=== PATIENT | female | born 1965 | race Caucasian/White ===

== ENCOUNTER 2017-03-31 15:23 | Inpatient (IN) | payer MEDICAID ==
--- NOTE | 2017-03-31 16:20 | ED Physician Chart ---
ED Chief Complaint/HPI - Patient Information Date Seen:: 03/31/17 Time Seen:: 15:35 Chief Complaint:: ABD DISTENSION X 3 DAYS. DYSPNEA DUE TO ABD DIST. History of Present Illness:: THIS 51 YEAR OLD FEMALE NOTICED THAT HER AB WAS GETTING MORE SWOLLEN 3 DAYS AGO. SHE HAS PAIN IN THE LUQ THAT IS 5/10 SEVERITY. THE PAIN IW WORSE WHEN SHE LAYS ON HER LEFT SIDE AND WHEN SHE IS WALKIN. SHE DENIES ALCOHOL USE BUT SMOKES ABOUT 1/3 OF A PACK PER DA7. SHE IS ALSO HAVING INCREASED DIFFICULTY BREATHING DUE TO THE SWELLING IN HER ABD. SHE HAS HAD NAUSEA FOR 3 DAYS WITH NO VOMITING WITH NO FEVER, CHILLS OR RASH. SHE HAD 4 EPISODES OF DIARRHEA YESTERDAY. NO DYSURIA OR HEMATURIA. PT HAS NOTICED HER URINE TURNED DARKER YESTEREAY. Allergies:: Allergies Allergy/AdvReac Type Severity Reaction Status Date / Time No Known Allergies Allergy Verified 03/31/17 15:36 Vitals:: Vital Signs - 8 hr 03/31/17 15:36 Temp 97.8 F HR 86 RR 17 BP 163/99 O2 Sat % 98 Review:: Nurse's Note Reviewed (NURSES NOT ON TRIAGE SHEET. NOT IN EMR.) ED Review of Systems - Review of Systems General/Constitutional: No fever, No chills, No weakness, No diaphoresis, Edema , No loss of appetite Skin: No bruising, Other (patient has psoriatic plaques on her abdomen and is single plaque over her right elbow.) Head: Headache ( headache is a 3/10 in severity.), No light-headedness Eyes: No loss of vision, No pain, No diplopia ENT: Earache, No earache, No nasal drainage, Sore throat, No sore throat, Other Neck: No neck pain, No swelling, No thyromegaly, No stiffness, No mass noted Cardio Vascular: No chest pain, No palpitations, No orthopnea, edema Pulmonary: SOB, No cough, No sputum, Wheezing GI: Nausea, No vomiting, Diarrhea, No melena, No hematochezia, No hematemesis, Other (NO Hemoptysisand) 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 Musculoskeletal: Back pain (BACK PAIN IS CHRONIC) Endocrine: No polyuria, No polydipsia Psychiatric: No prior psych history, No depression, No suicidal ideation Hematopoietic: No bruising Allergic/Immuno: No urticaria, No angioedema Neurological: No syncope, No focal symptoms, No seizure, No confusion, No vertigo ED Past Medical History - Past Medical History Past Medical History: Other (COPD, PSORIASIS) Social History: Smoker, No Alcohol, No Drug Use, Single Family Medical History - Family Member Mother History Unknown: Yes Ethnicity: Non- Living Status: Father Ethnicity: Non- Living Status: Hx Family Cancer: No Hx Family Coronary Artery Disease: Yes ( of a heart attack) Hx Family Congestive Heart Failure: No Hx Family Hypertension: Yes Hx Family Stroke: No Hx Family Diabetes: No Hx Family Seizures: No Hx Family Dementia: No Hx Family AIDS: No Hx Family HIV: No Hx Family COPD: No Hx Family Hepatitis: No Hx Family Psychiatric Problems: No Hx Family Tuberculosis: No ED Labs/Radiology/EKG Results - Lab Results Results: Laboratory Results - last 24 hr 03/31/17 03/31/17 03/31/17 16:00 16:00 16:00 WBC RBC Hgb Hct MCV MCH MCHC Differential RDW Plt Count MPV Neutrophils % Lymphocytes % Monocytes % Eosinophils % Basophils % Sodium 134 L Potassium 4.6 Chloride 99 Carbon Dioxide 29.7 Anion Gap 9.9 BUN 7 Creatinine 0.7 Est GFR ( Amer) > 60.0 Est GFR (Non-Af Amer) > 60.0 BUN/Creatinine Ratio 10.0 Glucose 97 Calcium 9.2 Total Bilirubin 1.5 H AST 13 ALT 9 Alkaline Phosphatase 61 Troponin I 0.02 B-Natriuretic Peptide 241.0 H Total Protein 6.8 Albumin 3.3 L Globulin 3.5 Albumin/Globulin Ratio 0.9 L 03/31/17 17:20 WBC 7.2 D RBC 6.04 H Hgb 13.8 Hct 44.7 MCV 74.1 L MCH 22.9 L MCHC Differential 30.9 RDW 18.0 Plt Count 231 MPV 10.1 Neutrophils % 72.4 Lymphocytes % 19.3 L Monocytes % 6.1 Eosinophils % 2.1 Basophils % 0.1 Sodium Potassium Chloride Carbon Dioxide Anion Gap BUN Creatinine Est GFR ( Amer) Est GFR (Non-Af Amer) BUN/Creatinine Ratio Glucose Calcium Total Bilirubin AST ALT Alkaline Phosphatase Troponin I B-Natriuretic Peptide Total Protein Albumin Globulin Albumin/Globulin Ratio The CBC is unremarkable in that there is no leukocytosis, anemia or platelet disorders. Metabolic studies show mild hyponatremia, normal renal function, normal hepatic tension. The BNP is mildly elevated and consistent with mild CHF. The troponin was in the normal range, indicating no cardiac ischemia. Single view chest x-ray shows cardiomegaly, vascular congestion in the lower lobes and possible left floral effusion. These findings were discussed with the radiologist who concurs. The EKG showed normal sinus rhythm in the 70 range with occasional PACs. The MT interval, QRS duration, and QT interval were all within normal parameters. The QRS axis is normal. No Q waves were identified. Impression: no findings of acute cardiac ischemia. ED Assessment - Assessment General Assessment: CASE SUMMARY: this 51-year-old female presents with increasing abdominal distention over the past three days. This was accompanied by increased difficulty breathing. The patient denied any fever, chills, cough or chest pain. Chest x-ray was consistent with mild to moderate CHF. The patient symptoms were addressed with 40 mg of furosemide administered IV. The case was discussed with Dr. Lewis and the patient will be admitted to a telemetry bed for further evaluation of possible CHF. MDM DDX FOR DIFFICULTY BREATHING: NOT Pneumonia based on the patient's history, physical examination and chest x-ray. NOT Pneumothorax based on interpretation of the chest x-ray. NOT Severe anemia based on a normal hemoglobin concentration. NOT Metabolic acidosis based on lab studies. ED Septic Shock - . Is Septic Shock (SBP<90, OR Lactate>4 mmol\L) present?: No - <6hrs of presentation: Vital Signs: Vital Signs - 8 hr 03/31/17 15:36 Temp 97.8 F HR 86 RR 17 BP 163/99 O2 Sat % 98 ED Reassessment (Disposition) - Reassessment Reassessment Condition:: Improved - Diagnosis Diagnosis:: CONGESTIVE HEART FAILURE, morbid obesity, PSORIASIS - Patient Disposition Discharge/Transfer:: Acute Care w/in this hosp Accepting Physician:: Dr. Lewis Condition at Disposition:: Improved ED Discharge Plan - Patient Disposition Admit/Discharge/Transfer: Acute Care w/in this hosp Condition at Disposition: Guarded
[2017-03-31 17:09] LABS: % BASOPHILS 0.1 % (0.0-2.0); % EOSINOPHILS 2.1 % (0.0-5.0); % LYMPHOCYTES 19.3 % (20.0-50.0); % MONOCYTES 6.1 % (2.0-10.0); % NEUTROPHILS 72.4 % (40.0-80.0); EOSINOPHILE ABSOLUTE 0.2 Th/cmm (0.1-0.4); HEMATOCRIT 44.7 % (41.0-60); HEMOGLOBIN 13.8 gm/dL (12-16); LYMPHOCYTE ABSOLUTE 1.4 Th/cmm (1.5-3.0); MEAN CELL VOLUME 74.1 fl (81-100); MEAN CORPUSCULAR HEMOGLOBIN 22.9 pg (27.0-31.0); MEAN CORPUSCULAR HGB CONC 30.9 pg (28.0-36.0); MEAN PLATELET VOLUME 10.1 fl; MONOCYTE ABSOLUTE 0.4 Th/cmm (0.3-1.0); NEUTROPHILE ABSOLUTE 5.2 Th/cmm (1.8-8.0); PLATELET COUNT 231 Th/cmm (150-400); RED BLOOD COUNT 6.04 Mil/cmm (3.80-5.10)
[2017-03-31 17:19] LABS: ALB/GLOB RATIO 0.9 (1.0-1.8); ALBUMIN 3.3 gm/dL (3.7-5.3); ALKALINE PHOSPHATASE 61 U/L (34-104); ANION GAP 9.9 (7.0-16.0); BILIRUBIN,TOTAL 1.5 mg/dL (0.3-1.0); BUN - UREA NITROGEN 7 mg/dL (7-25); CALCIUM SERUM 9.2 mg/dL (8.6-10.3); CARBON DIOXIDE 29.7 mEq/L (21.0-31.0); CHLORIDE 99 mEq/L (98-107); CREATININE - SERUM 0.7 mg/dL (0.6-1.2); GFR AFRICAN-AMERICAN > 60.0 ml/min (>90); GFR NON AFRICAN-AMERICAN > 60.0 ml/min; GLUCOSE 97 mg/dL (70-105); POTASSIUM SERUM 4.6 mEq/L (3.5-5.1); SGOT 13 U/L (13-39); SGPT/ALT 9 U/L (7-52); SODIUM SERUM 134 mEq/L (136-145); TOTAL PROTEIN,SERUM 6.8 gm/dL (6.0-8.3)
[2017-03-31 17:24] LABS: WHITE BLOOD COUNT 7.2 Th/cmm (4.8-10.8)
[2017-03-31 22:01] VITALS: BP 155/99
[2017-03-31] MEDS: Hydrocodone/APAP 5mg/325mg Tab PO PRN (23:32)
[2017-04-01] MEDS: Albuterol/Ipratropium Neb 3 ML AERS HHN SCH ×4 (00:21→19:29)
[2017-04-01 04:21] LABS: URINE MICROSCOPIC INDICATED? YES; URINE SOURCE RANDOM
[2017-04-01 04:44] LABS: URINE BILIRUBIN SMALL (NEGATIVE); URINE BLOOD NEGATIVE (NEGATIVE); URINE GLUCOSE (UA) NEGATIVE (NEGATIVE); URINE KETONE NEGATIVE (NEGATIVE); URINE LEUKOCYTE ESTERASE NEGATIVE (NEGATIVE); URINE NITRATE NEGATIVE (NEGATIVE); URINE PROTEIN TRACE mg/dL (NEGATIVE)
[2017-04-01 04:51] LABS: URINE CLARITY HAZY (CLEAR); URINE COLOR ORANGE
[2017-04-01 04:54] LABS: URINE BACTERIA 1+ /hpf (NONE SEEN); URINE EPITHELIAL CELLS MODERATE /lpf (FEW); URINE RBC 0-2 /hpf (0-5)
[2017-04-01 04:55] LABS: URINE HYALINE CAST 0-2 /lpf (0-2)
--- NOTE | 2017-04-01 09:34 | Diagnostic Imaging Report ---
Exam: Portable chest x-ray HISTORY: Shortness of breath. Findings: Portable examination of the chest at 1805 hours reviewed and compared to prior study of 09/18/2014. The study demonstrates cardiomegaly with superimposed congestive heart failure There is evidence for left lower lobe pneumonia and effusion. Follow-up examination recommended. Bony thorax is intact. IMPRESSION: Cardiomegaly congestive heart failure Left lower lobe pneumonia and effusion follow-up summation recommended.
--- NOTE | 2017-04-01 09:37 | Diagnostic Imaging Report ---
Exam: CT examination of the abdomen pelvis. HISTORY: Pain Total DLP equals 1025 CTDI equals 19.8. Findings: Multiple contiguous thin section of the abdomen pelvis obtained from lower thorax to pubic symphysis without the administration intravenous or oral contrast material. No prior studies available for comparison. The study demonstrates normal aeration of lung parenchyma the bases. There is evidence for a small 2 cm pleural density in the left mid the chest body the pleural surface. Clinical correlation recommended. The liver parenchyma spleen are normal. The gallbladder distended and free of stones. The pancreas is normal. The regional glands intact. The kidneys demonstrate no evidence of obstructive uropathy or nephrolithiasis. The abdominal aorta is calcified. The bowel gas to be nonspecific. There is evidence for anasarca. There is no evidence of diverticular disease of diverticulitis. The uterus is prominent. The urinary bladder is intact. Bony structures demonstrate no evidence for lytic or blastic changes. IMPRESSION: Ill-defined nodularity abutting the mid left chest pleural surface measuring 2 cm diameter. Clinical correlation recommended Distended gallbladder. There is no evidence of obstructive uropathy or nephrolithiasis. No evidence of diverticulitis. Anasarca.
--- NOTE | 2017-04-01 09:38 | Diagnostic Imaging Report ---
Exam: Ultrasound examination of the abdomen HISTORY abdominal distention. Findings: Real-time ultrasound examination of the abdomen performed multiple planes. The study demonstrates prominent liver parenchyma. The gallbladder free of calculi. The common bile duct measures 4 mm. Pancreas not seen. There is no evidence of obstructive uropathy or nephrolithiasis. Right kidney measures 13.0 x 5.8 x 6.6 cm diameter. Left kidney measures 13.7 x 6.3 x 6.5 cm diameter. The spleen is enlarged. IMPRESSION: Hepatosplenomegaly otherwise unremarkable sedation the abdomen. The study is limited due to patient body habitus.
[2017-04-01] MEDS: Potassium Chloride 20 mEq ER Tab PO SCH (09:54)
[2017-04-01] MEDS ORDERED: HYDROCODONE PO PRN (12:56)
[2017-04-01] MEDS ORDERED: ACETAMINOPHEN PO PRN (12:56)
[2017-04-01 13:17] LABS: pH 7.34 (7.35-7.45)
[2017-04-01 13:19] LABS: ALLEN TEST Positive
[2017-04-01] MEDS: Hydrocodone/APAP 5mg/325mg Tab PO PRN ×2 (13:25→21:23)
[2017-04-01] MEDS ORDERED: methylPREDNISolone SS 40 mg Vial IV ONE (13:32)
[2017-04-01] MEDS ORDERED: GABAPENTIN 400 MG PO SCH (14:00)
--- NOTE | 2017-04-01 14:26 | History & Physical ---
ADMIT DATE: 04/01/2017 PATIENT IDENTIFICATION: This is a 51-year-old female. CHIEF COMPLAINT: "I feel swollen, I can't work. I'm sick since October of last year." HISTORY OF PRESENT ILLNESS: A 51-year-old morbidly obese female with history of obstructive sleep apnea, Pickwickian syndrome, morbid obesity, COPD, history of gout, pretty much bedbound, has been followed by wafer substrate tester in [facility], brought herself to the Emergency Room for evaluation of feeling swollen for last 1 week. According to the patient, she was seen by her wafer substrate tester in last Sunday and it was, according to the patient, nothing was done and she was not feeling better, so she decided to come to the Emergency Room. The patient was seen by Emergency Room MD. Dr. Chirinos. Extensive evaluation including ultrasound, abdominal CAT scan and chest x-ray were done. The patient was noted to have cardiomegaly with congestive heart failure and pleural effusion. The patient is now being admitted to the hospital for further treatment. PAST MEDICAL HISTORY: Remarkable for: 1. COPD. 2. Morbid obesity. 3. Psoriasis. 4. Chronic pain syndrome. 5. Degenerative joint disease. 6. Pickwickian syndrome. MEDICATIONS AT HOME: Albuterol inhalers, Advair, Flonase, gabapentin, [place], Singulair, Spiriva, prednisone. ALLERGIES: The patient is not allergic to medications. SOCIAL HISTORY: The patient lives with her family in [facility]. The patient is smoking cigarette. The patient denies any alcohol or drug use. FAMILY MEDICAL HISTORY: Remarkable for diabetes and hypertension. REVIEW OF SYSTEMS: The patient does complain about headache. Denies any blurred vision, double vision. Denies any chest pain. Does have cough with congestion. Denies any nausea, denies any hematemesis. Denies any seizure or syncopal episode. According to the patient, she does ambulate to the bathroom only. Otherwise, she keeps herself in the bed only. PHYSICAL EXAMINATION: GENERAL: The patient is alert, awake, lying in the bed. VITAL SIGNS: T-max 100.1, pulse is 94, respiratory rate 22, blood pressure 151/88. HEENT: Normocephalic, atraumatic. Extraocular muscles intact. Tongue was pink and coated. Oropharynx congested. Nasal mucosa congested. NECK: Supple, no JVD, no hepatojugular reflex. No lymphadenopathy, thyromegaly, or carotid bruit. HEART: Both heart sounds are regular. CHEST: Lung equal in expansion with expiratory wheezing. ABDOMEN: Soft. No guarding, no rigidity. Liver, spleen palpable. No palpable mass. EXTREMITIES: No edema, no cyanosis. NEUROLOGIC: Alert, awake, follows commands. Decreased power throughout the upper and lower extremity. SKIN: Examination unremarkable. Multiple psoriatic lesions noted on the trunk as well as extremities. CLINICAL IMPRESSION: 1. Anasarca. I do believe secondary to pulmonary hypertension causing right-sided heart failure. 2. Morbid obesity. 3. Chronic obstructive pulmonary disease with mild exacerbation. 4. Chronic pain syndrome. 5. Psoriasis. 6. Obstructive sleep apnea. 7. Pickwickian syndrome. 8. Chronic respiratory failure. 9. Degenerative joint disease. 10. Decline in self-care, mobility. PLAN: The patient is admitted at this time to telemetry unit, 1. Provide oxygen. 2. Nebulizer treatment. 3. IV Lasix. 4. IV antibiotic. 5. IV steroid. 6. Pulmonary consult. 7. 2D echocardiogram. 8. Appropriate home medicine reconciliation. 9. General nursing care. 10. Use nighttime BiPAP. 11. Follow lab. 12. Follow consult recommendation. 13. Care plan reviewed and discussed with staff. JOB# [id number]
[2017-04-01] MEDS: Azithromycin 500 MG in Sodium Chloride 0.9% 250 ML IV SCH (14:45)
[2017-04-01] MEDS ORDERED: [UNRECOGNIZED DRUG - OTHER] IH SCH (17:00)
[2017-04-02] MEDS: Albuterol/Ipratropium Neb 3 ML AERS HHN SCH ×5 (00:24→19:03)
[2017-04-02 07:12] LABS: % BASOPHILS 0.9 % (0.0-2.0); % EOSINOPHILS 0.2 % (0.0-5.0); % LYMPHOCYTES 9.4 % (20.0-50.0); % NEUTROPHILS 86.5 % (40.0-80.0); BASOPHILE ABSOLUTE 0.1 Th/cumm (0-0.2); HEMATOCRIT 45.5 % (41.0-60); HEMOGLOBIN 13.9 gm/dL (12-16); MEAN CELL VOLUME 74.5 fl (81-100); MEAN CORPUSCULAR HEMOGLOBIN 22.8 pg (27.0-31.0); MEAN CORPUSCULAR HGB CONC 30.6 pg (28.0-36.0); MEAN PLATELET VOLUME 9.6 fl; MONOCYTE ABSOLUTE 0.3 Th/cmm (0.3-1.0); NEUTROPHILE ABSOLUTE 9.2 Th/cmm (1.8-8.0); PLATELET COUNT 251 Th/cmm (150-400); RED BLOOD COUNT 6.11 Mil/cmm (3.80-5.10); RED CELL DISTRIBUTION WIDTH 17.9 % (11.5-20.0)
[2017-04-02 07:13] LABS: WHITE BLOOD COUNT 10.6 Th/cmm (4.8-10.8)
[2017-04-02 07:39] LABS: ALB/GLOB RATIO 0.9 (1.0-1.8); ALBUMIN 3.4 gm/dL (3.7-5.3); ALKALINE PHOSPHATASE 57 U/L (34-104); ANION GAP 7.3 (7.0-16.0); BILIRUBIN,TOTAL 1.3 mg/dL (0.3-1.0); BUN - UREA NITROGEN 10 mg/dL (7-25); CALCIUM SERUM 9.5 mg/dL (8.6-10.3); CHLORIDE 100 mEq/L (98-107); CREATININE - SERUM 0.6 mg/dL (0.6-1.2); GFR AFRICAN-AMERICAN > 60.0 ml/min (>90); GFR NON AFRICAN-AMERICAN > 60.0 ml/min; GLUCOSE 121 mg/dL (70-105); POTASSIUM SERUM 4.3 mEq/L (3.5-5.1); SGOT 12 U/L (13-39); SGPT/ALT 9 U/L (7-52); SODIUM SERUM 138 mEq/L (136-145); TOTAL PROTEIN,SERUM 7.4 gm/dL (6.0-8.3)
[2017-04-02] MEDS: Potassium Chloride 20 mEq ER Tab PO SCH (08:24)
[2017-04-02] MEDS: Fluticasone Propionate 0.05mg/Actuation 16gm Nasal Spray NS SCH (08:24)
[2017-04-02] MEDS ORDERED: Non-Formulary Item 1 EA (Tiotropium Bromide [Spiriva] 18 MCG) IH SCH (09:00)
--- NOTE | 2017-04-02 09:56 | Progress Notes ---
DATE: 04/02/2017 DATE OF EVALUATION: 04/02/2017. SUBJECTIVE: The patient seen and examined. The patient is sitting in the chair. The patient states she feels little better though the patient was reported to have elevated heart rate of 140. The patient did have EKG, which revealed normal sinus rhythm. The patient does have significant medical problem, for that the patient has been admitted at this time. The patient stated that she has not received any oxygen at her home. The patient is morbidly obese and she has chronic respiratory failure with a pCO2 of around 70. The patient continues to feel swollen as well. The patient was advised to be seen by product development manager, but patient is not followed up by Pulmonary due to patient and per Dr. Lopez. The patient currently denies any chest pain, abdominal pain. Does have short of breath with exertion. OBJECTIVE: VITAL SIGNS: Temperature 97.3, pulse is 80, respiratory rate is 18, blood pressure is 129/64. HEENT: Normocephalic, atraumatic. Extraocular muscles intact. Tongue was pink and coated. NECK: Supple. No JVD. No bruit present. No thyromegaly. HEART: Both heart sounds are regular. CHEST: Lung equal in expansion, expiratory wheezing. ABDOMEN: Soft. No guarding, rigidity. EXTREMITIES: No edema. NEUROLOGIC: Alert and awake, follows command. DIAGNOSTIC DATA: For today, white count 10.6, hemoglobin 13.9, platelet count of 251. BUN and creatinine is 10 and 0.6, glucose of 121, albumin of 3.4. CLINICAL IMPRESSION: 1. Acute on chronic respiratory failure. 2. Chronic obstructive pulmonary disease exacerbation. 3. Left lower lobe pneumonia with effusion. 4. Morbid obesity. 5. Pickwickian syndrome. 6. Chronic pain syndrome. 7. Degenerative joint disease. 8. Psoriasis. 9. Sinus tachycardia. 10. Most likely pulmonary hypertension. PLAN: The patient will be continued to receive oxygen, nebulizer treatment, IV steroids, IV antibiotic. Pulmonary followup with Dr. Harding since the patient does not want to be seen by Dr. Kvng Roland. Await for 2D echocardiogram. Continue IV diuretics for now. Follow up on lab, general nursing care, appropriate medication continuation and will continue to give further recommendations once other lab data are available. JOB# [id number]
[2017-04-02] MEDS: Hydrocodone/APAP 5mg/325mg Tab PO PRN ×3 (10:02→21:37)
[2017-04-02] MEDS ORDERED: Probiotic Screen MC PRN (13:00)
[2017-04-02] MEDS: Azithromycin 500 MG in Sodium Chloride 0.9% 250 ML IV SCH (13:06)
--- NOTE | 2017-04-02 15:20 | Cardiology ---
04/01/2017 PROCEDURE: Echocardiogram. The patient of Dr. Mccoy. M-MODE ECHOCARDIOGRAM: Mitral valve, anterior leaflet of mitral valve shows normal excursion, EF velocity. Posterior leaflet of the mitral valve shows normal excursion. Left ventricular posterior wall shows increased thickness, normal excursion. Interventricular septum shows increased thickness, normal excursion, hypertrophy of the left ventricle, ejection fraction 50%. Left atrium normal. Aortic root shows normal dimension, normal excursion of aortic leaflets. CONCLUSION: Hypertrophy of the left ventricle, ejection fraction 55%. 2D ECHO: Only structure visualized in apical 4 chamber view showed normal sized left ventricle with hypertrophy of the left ventricle. Left atrium normal. Right ventricular cavity, right atrium normal. No pericardial effusion. CONCLUSION: Technically poor echo. Doppler study showed trace mitral regurgitation, trace tricuspid regurgitation. JOB# [id number]
[2017-04-02] MEDS ORDERED: Albuterol/Ipratropium Neb 3 ML AERS HHN PRN (16:21)
[2017-04-03] MEDS: Albuterol/Ipratropium Neb 3 ML AERS HHN SCH ×3 (00:28→12:53)
[2017-04-03] MEDS: Hydrocodone/APAP 5mg/325mg Tab PO PRN ×3 (03:58→13:35)
[2017-04-03 06:06] LABS: % BASOPHILS 2.2 % (0.0-2.0); % EOSINOPHILS 0.2 % (0.0-5.0); % LYMPHOCYTES 7.5 % (20.0-50.0); % MONOCYTES 1.2 % (2.0-10.0); % NEUTROPHILS 88.9 % (40.0-80.0); BASOPHILE ABSOLUTE 0.2 Th/cumm (0-0.2); HEMOGLOBIN 13.7 gm/dL (12-16); LYMPHOCYTE ABSOLUTE 0.8 Th/cmm (1.5-3.0); MEAN CELL VOLUME 74.9 fl (81-100); MEAN CORPUSCULAR HEMOGLOBIN 22.4 pg (27.0-31.0); MEAN CORPUSCULAR HGB CONC 29.9 pg (28.0-36.0); MEAN PLATELET VOLUME 9.6 fl; MONOCYTE ABSOLUTE 0.1 Th/cmm (0.3-1.0); NEUTROPHILE ABSOLUTE 9.1 Th/cmm (1.8-8.0); PLATELET COUNT 256 Th/cmm (150-400); RED BLOOD COUNT 6.14 Mil/cmm (3.80-5.10); RED CELL DISTRIBUTION WIDTH 18.3 % (11.5-20.0); WHITE BLOOD COUNT 10.2 Th/cmm (4.8-10.8)
[2017-04-03 07:04] LABS: ALB/GLOB RATIO 0.9 (1.0-1.8); ALBUMIN 3.4 gm/dL (3.7-5.3); ALKALINE PHOSPHATASE 52 U/L (34-104); ANION GAP 11.2 (7.0-16.0); BILIRUBIN,TOTAL 1.4 mg/dL (0.3-1.0); BUN - UREA NITROGEN 13 mg/dL (7-25); CALCIUM SERUM 9.5 mg/dL (8.6-10.3); CARBON DIOXIDE 32.6 mEq/L (21.0-31.0); CHLORIDE 98 mEq/L (98-107); CREATININE - SERUM 0.6 mg/dL (0.6-1.2); GFR AFRICAN-AMERICAN > 60.0 ml/min (>90); GFR NON AFRICAN-AMERICAN > 60.0 ml/min; GLUCOSE 167 mg/dL (70-105); POTASSIUM SERUM 4.8 mEq/L (3.5-5.1); SGOT 14 U/L (13-39); SGPT/ALT 8 U/L (7-52); SODIUM SERUM 137 mEq/L (136-145); TOTAL PROTEIN,SERUM 7.3 gm/dL (6.0-8.3)
--- NOTE | 2017-04-03 08:14 | Diagnostic Imaging Report ---
Portable chest x-ray HISTORY: Shortness of breath The exam is extremely limited due to difficulty in patient positioning and overlying soft tissues. The heart appears enlarged. Poor visualization of the left lower hemithorax. No obvious focal processes. IMPRESSION: 1. Very limited/suboptimal exam. Poor visualization of the left lower chest. No obvious focal processes 2. Cardiomegaly
--- NOTE | 2017-04-03 09:12 | Consultation ---
DATE OF CONSULTATION: 04/02/2017 REFERRING PHYSICIAN: Bob Mccoy MD Thank you very much for this consultation. HISTORY OF PRESENT ILLNESS: This is a 51-year-old female with history of COPD, CHF, morbid obesity, and obstructive sleep apnea syndrome. The patient presented with feeling of bloating and swelling, and treated with Spiriva and Advair as an outpatient. The patient is feeling better since she came in. She says she was diagnosed with CHF as well. She was diagnosed with sleep apnea, but she states she decided not to use the CPAP machine after she got the pneumococcal vaccine and she felt good. She lost machine with lack of usage. The patient is a smoker, continues to smoke for the past 35 years, smokes about half a pack a day now. She states she decided to quit smoking once she needs oxygen at home. PAST MEDICAL HISTORY: As above. SOCIAL HISTORY: As above. PHYSICAL EXAMINATION: GENERAL: Awake, alert, not in acute distress. VITAL SIGNS: Temperature 97.4, pulse 84, respiration 16, blood pressure 134/77, and saturation 92% to 95%. HEENT: Atraumatic and normocephalic. Pupils react to light and accommodation. Ears and nose are normal.. Throat, class IV upper airways. NECK: Supple. No JVD. CHEST: There are good breath sounds. No wheezing or crackles. HEART: Regular rate and rhythm. ABDOMEN: Soft. EXTREMITIES: Edema 1+. DIAGNOSTIC DATA: Last chest x-ray showed left lower lobe infiltrate and some CHF changes. OTHER LABORATORY DATA: WBC is 10.6, hemoglobin 13.9, platelets 251. Last ABGs: pH 7.34, pCO2 72, pO2 is 44, bicarbonate is 32. potassium 4.3, BUN is 10, and creatinine is 0.6. IMPRESSION: 1. This is a 51-year-old female with: 1. Chronic obstructive pulmonary disease. 2. Pneumonia. 3. Congestive heart failure. 4. Obesity. 5. Obstructive sleep apnea syndrome. PLAN: 1. Continue with nebulizer treatment. 2. Antibiotics. 3. Diuresis. 4. Add Solu-Medrol, BiPAP at night. The patient appears to be very noncompliant. As of note, the patient was very rude during our interview. My understanding, the patient did not want to see the first revising clerk that was called to see. We will try our best to take care of this patient and see if she qualifies for home oxygen. Advised again to quit smoking. She should not link that with having oxygen at home. Thank you very much. I will follow the patient with you. JOB# [id number] ISAAC
[2017-04-03] MEDS: Fluticasone Propionate 0.05mg/Actuation 16gm Nasal Spray NS SCH (09:15)
[2017-04-03] MEDS: Potassium Chloride 20 mEq ER Tab PO SCH (09:16)
--- NOTE | 2017-04-03 10:37 | Discharge Summary ---
DATE OF DISCHARGE: 04/03/2017 DATE OF DISCHARGE: 04/03/2017. PRINCIPAL DIAGNOSES: 1. Right-sided heart failure. 2. Pulmonary hypertension. 3. Morbid obesity. 4. Chronic obstructive pulmonary disease exacerbation. 5. Left lower lobe pneumonia. 6. Chronic pain syndrome. 7. Psoriasis. 8. Obstructive sleep apnea. 9. Pickwickian syndrome. 10. Chronic respiratory failure. 11. Acute respiratory failure. 12. Degenerative joint disease. 13. Debility. BRIEF STATEMENT FOR THE REASON FOR ADMISSION: A 51-year-old female, morbidly obese, presented to Emergency Room for increasing shortness of breath along with feeling swollen and difficulty in walking. The patient was evaluated and subsequently admitted to the hospital for further treatment. Please refer to my H and P for further information. HOSPITAL COURSE: The patient was admitted to med telemetry unit. Oxygen nebulizer treatment, IV Lasix, IV steroid, IV antibiotic was given. Pulmonary consult was requested. A 2D echocardiogram given. Appropriate home medicine was reconciliated as well. The patient was improving with the treatment plan. So, decision was made that the patient will be discharged home with outpatient followup with primary MD and have sleep study to be done. Oxygen to be arranged at home. The patient is given prescription of prednisone, Zithromax along with other medication as patient receiving at home as well. The patient was also advised to take Revatio 20 mg 3 times a day as well. [facility]# [id number]
[2017-04-03] MEDS: Azithromycin 500 MG in Sodium Chloride 0.9% 250 ML IV SCH (13:27)
--- NOTE | 2017-04-03 23:14 | Progress Notes ---
DATE: 04/03/2017 SUBJECTIVE: The patient is seen and examined. The patient is lying in the bed. The patient stated that she feels much better. She wants to go home. Today is her birthday. The patient did have echocardiogram, which was poor quality of echocardiogram, but the patient continues to improve with the treatment plan prescribed by myself and sap bw consultant. The patient was seen by proposal consultant, Dr. Harding and he did agree with the treatment plan along with adding steroid and BiPAP at nighttime. The patient did need to have oxygen. An outpatient sleep study, which I did advise to have followup with skin care consultant as an outpatient as well. The patient was improving with the treatment plan as prescribed by myself and sap bw consultant. Decision was made that the patient will be discharged home. DISCHARGE DIAGNOSES: Include: 1. Acute on chronic respiratory failure. 2. Cor pulmonale. 3. Morbid obesity. 4. Obstructive sleep apnea. 5. Left lower lobe pneumonia. 6. Chronic obstructive pulmonary disease exacerbation. 7. Pickwickian syndrome. 8. Psoriasis. 9. Degenerative joint disease. 10. Chronic pain syndrome. DISCHARGE MEDICATIONS: Include prednisone 50 mg daily for 5 days, Zithromax 500 mg daily for 7 days along with inhalation therapy to be continued at home or arrange home O2 to be given at home. Outpatient sleep study is at home as well along with other medication as patient receiving at home. The patient will be seen by her skin care consultant in 1 week. If condition deteriorate, the patient should go to Emergency Room or call 911. JOB# [id number]
== END 2017-04-03 18:35 | disposition home health service (06) | DRG 133 ==
LOC: ER 15:23 → TELE 19:00
PROVIDERS: ADMIT Internal Medicine; ATTEND Internal Medicine
PROC: 5A09357 Assistance with Respiratory Ventilation, Less than 24 Consecutive Hours, Continuous Positive Airway Pressure (ICD-10-PCS; principal; 2017-04-02)
DX: J96.20 Acute and chronic respiratory failure, unspecified whether with hypoxia or hypercapnia (principal); J18.1 Lobar pneumonia, unspecified organism; I27.20 Pulmonary hypertension, unspecified; I50.810 Right heart failure, unspecified; E66.2 Morbid (severe) obesity with alveolar hypoventilation; Z68.43 Body mass index [BMI] 50.0-59.9, adult; E87.1 Hypo-osmolality and hyponatremia; I50.9 Heart failure, unspecified; J44.1 Chronic obstructive pulmonary disease with (acute) exacerbation; G89.4 Chronic pain syndrome; L40.9 Psoriasis, unspecified; M19.90 Unspecified osteoarthritis, unspecified site; F17.210 Nicotine dependence, cigarettes, uncomplicated; M10.9 Gout, unspecified; R00.0 Tachycardia, unspecified; J44.0 Chronic obstructive pulmonary disease with (acute) lower respiratory infection; Z88.8 Allergy status to other drugs, medicaments and biological substances; Z74.01 Bed confinement status
CPT/HCPCS: 36415-UA; 36600-90; 71045-TC; 76700-TC; 80053-TC; 81001-TC; 82803-TC; 83880-TC; 84484-TC; 85007-TC; 85025-TC; 85027-TC; 93005; 93307-TC; 94640; 94760; 96374; J0456; J1940; J2920; J2930; Z7610